=== PATIENT | male | born 1980 | race Caucasian/White ===

== ENCOUNTER 2019-01-15 12:49 | Inpatient (IN) | payer MEDICAID, SELFPAY ==
[2019-01-15 13:11] VITALS: BMI 22.5; BMI 49.7
[2019-01-15 13:13] VITALS: BP 139/93; PULSE 91; RESP 18; TEMP 36.8; O2SAT 99
[2019-01-15 14:00] VITALS: BP 139/93; PULSE 91; RESP 18; TEMP 36.8; O2SAT 99
--- NOTE | 2019-01-15 14:06 | PCM.HP.STD ---
Problem List (1) Heroin abuse Status: Acute (2) Alcohol abuse Status: Acute (3) Cocaine abuse Status: Acute History of Present Illness Date of Admission: 01/15/19 Chief Complaint: Polysubstance abuse withdrawal The patient is a 38 year old M with a history of polysubstance abuse and multiple episodes of withdrawal who presents once again with heroin and alcohol withdrawal. He states that his last use with the 16th of a gram of heroin yesterday evening and his last drink was 6 beers yesterday afternoon as well. He states that he used cocaine 2-3 days ago. He presented for [facility] withdrawal and on their evaluation felt that his CIWA was 37 and his CINA was 23. He states that he was also recently about a week and a half ago tested for hepatitis C and HIV which were negative. Also he has a history of anxiety and depression and was on Wellbutrin and Zoloft however he has not taken those medications in over a month. Past Medical History Allergies No Known Allergies Allergy (Verified 01/15/19 13:28) Surgical History: no surgical history Smoking Status: Current every day smoker Tobacco Use: Cigarettes Alcohol: Heavy Drugs: Cocaine, Heroin - *Family History Maternal History Items: No pertinent history Paternal History Items: No pertinent history Review of Systems Constitutional: Denies: Chills, Fever, Weight Change HEENT: Denies: Head Aches, Sinus Congestion, Sinus Drainage Cardiovascular: Denies: Chest Pain, Palpitations Respiratory: Denies: Cough, Shortness of breath at rest, Sputum production Gastrointestinal: Reports: Abdominal Pain, Nausea. Denies: Vomiting Genitourinary: Denies: Dysuria Musculoskeletal: Denies: Joint Pain, Joint Tenderness Skin: Denies: Rash, Wounds Neurological: Denies: Numbness, Tingling, Focal weakness Psychiatric: Reports: Anxiety. Denies: Depression Hematologic/ Lymphatic: Denies: Easy Bruising, Easy Bleeding VTE Information - Inpt Only VTE Present on Admission: No Patient Problems: Active and Suspected Problems Heroin abuse (Acute) Alcohol abuse (Acute) Cocaine abuse (Acute) - Physical Exam General: Alert, Oriented x3, Cooperative, - - Restless HEENT: Atraumatic, PERRLA, EOMI, Normocephalic Oral: Moist Mucosa Neck: Supple, No JVD Lungs: Clear to auscultation, Normal air movement, No rhonchi, No wheeze, No rales Cardiovascular: Regular rate, Regular Rhythm, Normal S1, Normal S2, No murmurs Abdomen: Soft, Non Tender, Non-Distended, No Hepato-splenomegaly Extremities: No edema, Capillary Refill Less than 3 Seconds Skin: Ulcer/ Wound - Multiple track galeano all over his body in different stages of healing, there is a new neck wound on his left that appears to be healing slowly, it is dry and about a centimeter in diameter. Neurological: Neuro grossly intact, Sensory exam intact to light touch and pain Psych/Mental Status: Anxious, Restless Vital Signs Temp Pulse Resp BP Pulse Ox 98.3 F 91 18 139/93 H 99 01/15/19 13:13 01/15/19 13:13 01/15/19 13:13 01/15/19 13:13 01/15/19 13:13 Oxygen Delivery Method Room Air Weight: 148 lb 4 oz Body Mass Index (BMI) 22.5 Assessment/Plan All Active Problems Heroin abuse (Acute) Alcohol abuse (Acute) Cocaine abuse (Acute) 1. Heroin/alcohol withdrawal/cocaine use -We will continue with the [facility] protocol for withdrawal -Librium taper as well as Suboxone taper -Ativan 2 mg IV every 2 as needed for alcohol withdrawal -We will monitor multiple track galeano for signs of infection -States that he was recently tested for HIV and HCV which was negative 2. Anxiety/depression -Had been on Zoloft and Wellbutrin -Taken any medications in over a month, may need medications on discharge if stable 3. Tobacco abuse -Counseled cessation -Provide nicotine patch DVT: Ambulation Code Visit Inpatient E&M: 47172 Init Hosp L2
[2019-01-15] MEDS: chlordiazePOXIDE 25 MG Capsule PO ×2 (14:11→19:54)
[2019-01-15] MEDS: cloNIDine HCl 0.1 MG Tablet PO ×3 (14:11→21:48)
[2019-01-15] MEDS: hydrOXYzine PAM 25 MG Capsule 50 MG PO (14:11)
[2019-01-15] MEDS: Methocarbamol 750 MG Tablet PO ×2 (14:11→21:48)
[2019-01-15] MEDS: Buprenorphine HCl 2 MG TAB.SUBL SL ×2 (14:11→21:41)
[2019-01-15] MEDS: Pramipexole Di-HCl 0.25 MG Tablet PO (14:11)
[2019-01-15] MEDS: LORazepam 2 MG/ML Syringe IV ×3 (14:15→19:58)
--- NOTE | 2019-01-15 16:14 | NURSING ---
PT STATES DOES NOT RECEIVE VACCINES
[2019-01-15] MEDS: Acetaminophen 325 MG Tablet 650 MG PO (17:24)
[2019-01-15] MEDS: Ondansetron 4 MG/2 ML Vial IV (17:24)
[2019-01-15] MEDS: Dicyclomine 10 MG Capsule 20 MG PO (17:25)
[2019-01-15 17:26] LABS: Bedside Glucose 142 mg/dL (70-110)
[2019-01-15 18:00] VITALS: BP 115/61; PULSE 98; RESP 18; TEMP 36.9; O2SAT 97
[2019-01-15 18:24] VITALS: BP 115/61; PULSE 98; RESP 18; TEMP 36.9; O2SAT 97
[2019-01-15 19:49] VITALS: BP 114/68; PULSE 92; RESP 16; TEMP 36.9; O2SAT 97
[2019-01-15 23:10] LABS: Bedside Glucose 104 mg/dL (70-110)
[2019-01-16] MEDS: chlordiazePOXIDE 25 MG Capsule PO ×4 (01:54→23:09)
[2019-01-16 01:57] VITALS: BP 108/69; PULSE 78; RESP 16; TEMP 36.7; O2SAT 98
[2019-01-16] MEDS: LORazepam 2 MG/ML Syringe IV ×2 (02:04→06:52)
[2019-01-16] MEDS: Pramipexole Di-HCl 0.25 MG Tablet PO (02:11)
[2019-01-16] MEDS: Acetaminophen 325 MG Tablet 650 MG PO ×3 (02:12→21:37)
[2019-01-16] MEDS: Dicyclomine 10 MG Capsule 20 MG PO ×3 (02:12→21:38)
[2019-01-16] MEDS: cloNIDine HCl 0.1 MG Tablet PO ×5 (02:12→21:35)
[2019-01-16] MEDS: hydrOXYzine PAM 25 MG Capsule 50 MG PO ×3 (02:12→21:35)
[2019-01-16] MEDS: Buprenorphine HCl 2 MG TAB.SUBL SL ×3 (06:44→21:35)
[2019-01-16] MEDS: Methocarbamol 750 MG Tablet PO ×3 (06:52→21:35)
--- NOTE | 2019-01-16 08:56 | PCM.PN.HOSP ---
Patient Problems: Active and Suspected Problems Heroin abuse (Acute) Alcohol abuse (Acute) Cocaine abuse (Acute) Subjective: Doing well, no issues overnight Vitals/I&O's: Vital Signs Temp Pulse Resp BP Pulse Ox 98.1 F 78 16 108/69 98 01/16/19 01:57 01/16/19 01:57 01/16/19 01:57 01/16/19 01:57 01/16/19 01:57 Oxygen Delivery Method Room Air Weight: 148 lb 3.997 oz Body Mass Index (BMI) 22.5 Intake and Output for Last 24 Hours 01/14/19 01/15/19 01/16/19 23:59 23:59 23:59 Intake Total 440 / 440 500 / 500 Balance 440 / 440 500 / 500 General: Alert, Oriented x3, Cooperative, - - Restless HEENT: Atraumatic, PERRLA, EOMI, Normocephalic Oral: Moist Mucosa Neck: Supple, No JVD Lungs: Clear to auscultation, Normal air movement, No rhonchi, No wheeze, No rales Cardiovascular: Regular rate, Regular Rhythm, Normal S1, Normal S2, No murmurs Abdomen: Soft, Non Tender, Non-Distended, No Hepato-splenomegaly Extremities: No edema, Capillary Refill Less than 3 Seconds Skin: Ulcer/ Wound - Multiple track galeano all over his body in different stages of healing, there is a new neck wound on his left that appears to be healing slowly, it is dry and about a centimeter in diameter. Neurological: Neuro grossly intact, Sensory exam intact to light touch and pain Psych/Mental Status: Anxious, Restless Laboratory Results 01/15/19 17:17: POC Glucose 142 H 01/15/19 23:08: POC Glucose 104 Current Medications Acetaminophen (Tylenol) 650 mg PO Q6H PRN PRN PRN Reason: Mild Pain (1-3)/Temp > 100.7 F Last Admin: 01/16/19 02:12 Dose: 650 mg Buprenorphine HCl (Buprenorphine Hcl) 4 mg SL Q8H NAY; Taper Stop: 01/18/19 17:44 Last Admin: 01/16/19 06:44 Dose: 4 mg Chlordiazepoxide (Librium) 50 mg PO Q8H NAY; Taper Stop: 01/18/19 15:44 Last Admin: 01/16/19 06:44 Dose: 50 mg Clonidine (Catapres) 0.1 mg PO Q2H PRN PRN PRN Reason: Hot/Cold Sweats or Anxiety Last Admin: 01/16/19 06:52 Dose: 0.1 mg Dicyclomine HCl (Bentyl) 20 mg PO Q6H PRN PRN PRN Reason: abdominal discomfort Last Admin: 01/16/19 02:12 Dose: 20 mg [facility]olic Acid ([facility]) [facility] Stop: 01/18/19 08:01 Hydroxyzine Pamoate (Vistaril Pamoate Capsule) 50 mg PO Q6H PRN PRN PRN Reason: Mild Anxiety (score 1/3) Last Admin: 01/16/19 02:12 Dose: 50 mg Lorazepam (Ativan) 2 mg IV X1 PRN PRN Reason: Seizure Last Admin: 01/15/19 14:15 Dose: 2 mg Lorazepam (Ativan) 2 mg PO Q2H PRN PRN PRN Reason: Alcohol Withdrawal Methocarbamol (Methocarbamol) 750 mg PO Q6H PRN PRN PRN Reason: Muscle Aches Last Admin: 01/16/19 06:52 Dose: 750 mg Multivitamins (Multivitamin) 1 tablet [facility] Nicotine (Nicoderm Cq (Pbkc)) 14 mg TRANSDERM. DAILY [facility] Last Admin: 01/15/19 17:19 Dose: 14 mg Nutritional Formula (Lactose Free) (Ensure Enlive) 120 ml PO 4X/DAY [facility] Last Admin: 01/15/19 21:41 Dose: 120 ml Ondansetron HCl (Zofran) 4 mg IV Q8H PRN PRN PRN Reason: NAUSEA/VOMITING Last Admin: 01/15/19 17:24 Dose: 4 mg Pramipexole Dihydrochloride (Mirapex) 0.25 mg PO Q12H PRN PRN PRN Reason: Restless Legs Last Admin: 01/16/19 02:11 Dose: 0.25 mg Sodium Chloride () 5 - 15 ml IV UD PRN PRN Reason: SALINE FLUSH Thiamine HCl (Vitamin B1) [facility] Stop: 01/18/19 08:01 Medical Necessity - Tobacco Use Smoking Status: Current every day smoker Tobacco Use: Cigarettes Assessment/Plan All Active Problems Heroin abuse (Acute) Alcohol abuse (Acute) Cocaine abuse (Acute) 1. Heroin/alcohol withdrawal/cocaine use -We will continue with the [facility] protocol for withdrawal -Librium taper as well as Suboxone taper -Ativan 2 mg p.o. every 2 as needed for alcohol withdrawal -We will monitor multiple track galeano for signs of infection -States that he was recently tested for HIV and HCV which was negative 2. Anxiety/depression -Had been on Zoloft and Wellbutrin -Has not taken any medications in over a month, may need medications on discharge if stable 3. Tobacco abuse -Counseled cessation -Provide nicotine patch DVT: Ambulation Code Visit Inpatient E&M: 51450 Subs Hosp L2
[2019-01-16 10:00] VITALS: BP 127/54; PULSE 89; RESP 18; TEMP 36.8
[2019-01-16] MEDS: Thiamine Hydrochloride 100 MG Tablet PO (10:32)
[2019-01-16] MEDS: Folic Acid 1 MG Tablet PO (10:32)
[2019-01-16] MEDS: Multivitamins,Therapeutic Tablet 1 TABLET PO (10:32)
[2019-01-16] MEDS: LORazepam 1 MG Tablet 2 MG PO ×5 (10:38→23:26)
--- NOTE | 2019-01-16 12:23 | NEWVISION ---
Patient has discharge plan with [facility] same day -post D/c with agency to picker patient. Contact at the [facility]: Aris [phone]. {Patient to call on Saturday to arrange for the transportation that they are providing for Saturday.
[2019-01-16 14:00] VITALS: BP 111/65; PULSE 78; RESP 14; TEMP 36.8
[2019-01-16 21:43] VITALS: BP 114/73; PULSE 64; RESP 18; TEMP 36.8
[2019-01-17] VITALS (10 sets, daily range): BP systolic 120–136; BP diastolic 56–80; PULSE 80–88; RESP 16–18; TEMP 36.6–37; O2SAT 98–100
[2019-01-17] MEDS: Pramipexole Di-HCl 0.25 MG Tablet PO (00:36)
[2019-01-17] MEDS: LORazepam 1 MG Tablet 2 MG PO ×6 (00:37→19:14)
[2019-01-17] MEDS: cloNIDine HCl 0.1 MG Tablet PO ×4 (00:38→18:00)
--- NOTE | 2019-01-17 00:56 | NURSING ---
pt anxious,CIWA score 22, withdrawal score 7. prn Ativan given an hr after first dose per order.
[2019-01-17] MEDS: Methocarbamol 750 MG Tablet PO ×2 (05:37→18:00)
[2019-01-17] MEDS: Acetaminophen 325 MG Tablet 650 MG PO (05:38)
[2019-01-17] MEDS: Buprenorphine HCl 2 MG TAB.SUBL SL ×2 (05:38→17:46)
[2019-01-17] MEDS: chlordiazePOXIDE 25 MG Capsule PO ×2 (07:26→16:03)
[2019-01-17] MEDS: Folic Acid 1 MG Tablet PO (08:29)
[2019-01-17] MEDS: Multivitamins,Therapeutic Tablet 1 TABLET PO (08:29)
[2019-01-17] MEDS: Thiamine Hydrochloride 100 MG Tablet PO (08:29)
[2019-01-17] MEDS: Ondansetron ODT 4 MG Tablet PO (08:55)
--- NOTE | 2019-01-17 08:59 | PCM.PN.HOSP ---
Patient Problems: Active and Suspected Problems Heroin abuse (Acute) Alcohol abuse (Acute) Cocaine abuse (Acute) Subjective: Seems more calm today and is sitting up in bed watching television and eating breakfast. Feeling better than when he came in no acute events overnight Vitals/I&O's: Vital Signs Temp Pulse Resp BP Pulse Ox 98.3 F 88 18 131/77 H 99 01/17/19 08:32 01/17/19 08:32 01/17/19 08:32 01/17/19 08:32 01/17/19 08:32 Oxygen Delivery Method Room Air Weight: 148 lb 3.997 oz Body Mass Index (BMI) 22.5 Intake and Output for Last 24 Hours 01/15/19 01/16/19 01/17/19 23:59 23:59 23:59 Intake Total 440 / 440 1600 / 1600 300 / 300 Balance 440 / 440 1600 / 1600 300 / 300 General: Alert, Oriented x3, Cooperative, HEENT: Atraumatic, PERRLA, EOMI, Normocephalic Oral: Moist Mucosa Neck: Supple, No JVD Lungs: Clear to auscultation, Normal air movement, No rhonchi, No wheeze, No rales Cardiovascular: Regular rate, Regular Rhythm, Normal S1, Normal S2, No murmurs Abdomen: Soft, Non Tender, Non-Distended, No Hepato-splenomegaly Extremities: No edema, Capillary Refill Less than 3 Seconds Skin: Ulcer/ Wound - Multiple track galeano all over his body in different stages of healing, there is a new neck wound on his left that appears to be healing slowly, it is dry and about a centimeter in diameter. Neurological: Neuro grossly intact, Sensory exam intact to light touch and pain Psych/Mental Status: Anxious, Restless Current Medications Acetaminophen (Tylenol) 650 mg PO Q6H PRN PRN PRN Reason: Mild Pain (1-3)/Temp > 100.7 F Last Admin: 01/17/19 05:38 Dose: 650 mg Buprenorphine HCl (Buprenorphine Hcl) 2 mg SL Q12H NAY; Taper Stop: 01/18/19 17:44 Last Admin: 01/17/19 05:38 Dose: 2 mg Chlordiazepoxide (Librium) 50 mg PO Q8H NAY; Taper Stop: 01/18/19 15:44 Last Admin: 01/17/19 07:26 Dose: 50 mg Clonidine (Catapres) 0.1 mg PO Q2H PRN PRN PRN Reason: Hot/Cold Sweats or Anxiety Last Admin: 01/17/19 05:37 Dose: 0.1 mg Dicyclomine HCl (Bentyl) 20 mg PO Q6H PRN PRN PRN Reason: abdominal discomfort Last Admin: 01/16/19 21:38 Dose: 20 mg Folic Acid ([facility] Acid) [facility] Stop: 01/18/19 08:01 Last Admin: 01/17/19 08:29 Dose: 1 mg Hydroxyzine Pamoate (Vistaril Pamoate Capsule) 50 mg PO Q6H PRN PRN PRN Reason: Mild Anxiety (score 1/3) Last Admin: 01/16/19 21:35 Dose: 50 mg Lorazepam (Ativan) 2 mg IV X1 PRN PRN Reason: Seizure Last Admin: 01/15/19 14:15 Dose: 2 mg Lorazepam (Ativan) 2 mg PO Q2H PRN PRN PRN Reason: Alcohol Withdrawal Last Admin: 01/17/19 08:54 Dose: 2 mg Methocarbamol (Methocarbamol) 750 mg PO Q6H PRN PRN PRN Reason: Muscle Aches Last Admin: 01/17/19 05:37 Dose: 750 mg Multivitamins (Multivitamin) [facility] Last Admin: 01/17/19 08:29 Dose: 1 tablet Nicotine (Nicoderm Cq (Pbkc)) 21 mg TRANSDERM. DAILY [facility] Last Admin: 01/16/19 21:42 Dose: 21 mg Nutritional Formula (Lactose Free) (Ensure Enlive) 120 ml PO 4X/DAY [facility] Last Admin: 01/16/19 21:35 Dose: 120 ml Ondansetron HCl (Zofran Odt) 4 mg PO Q8H PRN PRN PRN Reason: NAUSEA Last Admin: 01/17/19 08:55 Dose: 4 mg Pramipexole Dihydrochloride (Mirapex) 0.25 mg PO Q12H PRN PRN PRN Reason: Restless Legs Last Admin: 01/17/19 00:36 Dose: 0.25 mg Sodium Chloride () 5 - 15 ml IV UD PRN PRN Reason: SALINE FLUSH Thiamine HCl (Vitamin B1) [facility] Stop: 01/18/19 08:01 Last Admin: 01/17/19 08:29 Dose: 100 mg Medical Necessity - Tobacco Use Smoking Status: Current every day smoker Tobacco Use: Cigarettes Assessment/Plan All Active Problems Heroin abuse (Acute) Alcohol abuse (Acute) Cocaine abuse (Acute) 1. Heroin/alcohol withdrawal/cocaine use -We will continue with the [facility] protocol for withdrawal -Librium taper as well as Suboxone taper -Ativan 2 mg p.o. every 2 as needed for alcohol withdrawal -We will monitor multiple track galeano for signs of infection -States that he was recently tested for HIV and HCV which was negative 2. Anxiety/depression -Had been on Zoloft and Wellbutrin -Has not taken any medications in over a month, may need medications on discharge if stable 3. Tobacco abuse -Counseled cessation -Provide nicotine patch Dispo: [facility] tomorrow to further inpatient rehab DVT: Ambulation Code Visit Inpatient E&M: 02499 Subs Hosp L2
--- NOTE | 2019-01-17 09:07 | CASEMGMT ---
Physician asked about pt's discharge plan as pt is uncertain what it is and how he will get there. SW reviewed the chart, Vonnie from [facility] in her note states pt is going to [facility] and pt is to call to set up transport, they will come brick picker pt tomorrow. ARACELIS spoke w/pt, he actually found the information from Vonnie at the bedside and called [facility] already, but was not sure what time he should tell them to pick him up. ARACELIS spoke w/physician, pt will be ready for discharge after 5:45am. ARACELIS let RN know pt can be picked up tomorrow morning after his last dose of meds at 5:45am. SHRAVAN Rose, PROGRAM MANAGEMENT PROFESSIONAL
--- NOTE | 2019-01-17 09:10 | PN_ITS ---
Patient Problems: Active and Suspected Problems Heroin abuse (Acute) Alcohol abuse (Acute) Cocaine abuse (Acute) Subjective: Seems more calm today and is sitting up in bed watching television and eating breakfast. Feeling better than when he came in no acute events overnight Vitals/I&O's: Vital Signs Temp Pulse Resp BP Pulse Ox 98.3 F 88 18 131/77 H 99 01/17/19 08:32 01/17/19 08:32 01/17/19 08:32 01/17/19 08:32 01/17/19 08:32 Oxygen Delivery Method Room Air Weight: 148 lb 3.997 oz Body Mass Index (BMI) 22.5 Intake and Output for Last 24 Hours 01/15/19 01/16/19 01/17/19 23:59 23:59 23:59 Intake Total 440 / 440 1600 / 1600 300 / 300 Balance 440 / 440 1600 / 1600 300 / 300 General: Alert, Oriented x3, Cooperative, HEENT: Atraumatic, PERRLA, EOMI, Normocephalic Oral: Moist Mucosa Neck: Supple, No JVD Lungs: Clear to auscultation, Normal air movement, No rhonchi, No wheeze, No rales Cardiovascular: Regular rate, Regular Rhythm, Normal S1, Normal S2, No murmurs Abdomen: Soft, Non Tender, Non-Distended, No Hepato-splenomegaly Extremities: No edema, Capillary Refill Less than 3 Seconds Skin: Ulcer/ Wound - Multiple track galeano all over his body in different stages of healing, there is a new neck wound on his left that appears to be healing slowly, it is dry and about a centimeter in diameter. Neurological: Neuro grossly intact, Sensory exam intact to light touch and pain Psych/Mental Status: Anxious, Restless Current Medications Acetaminophen (Tylenol) 650 mg PO Q6H PRN PRN PRN Reason: Mild Pain (1-3)/Temp > 100.7 F Last Admin: 01/17/19 05:38 Dose: 650 mg Buprenorphine HCl (Buprenorphine Hcl) 2 mg SL Q12H NAY; Taper Stop: 01/18/19 17:44 Last Admin: 01/17/19 05:38 Dose: 2 mg Chlordiazepoxide (Librium) 50 mg PO Q8H NAY; Taper Stop: 01/18/19 15:44 Last Admin: 01/17/19 07:26 Dose: 50 mg Clonidine (Catapres) 0.1 mg PO Q2H PRN PRN PRN Reason: Hot/Cold Sweats or Anxiety Last Admin: 01/17/19 05:37 Dose: 0.1 mg Dicyclomine HCl (Bentyl) 20 mg PO Q6H PRN PRN PRN Reason: abdominal discomfort Last Admin: 01/16/19 21:38 Dose: 20 mg Folic Acid (Folic Acid) [facility] Stop: 01/18/19 08:01 Last Admin: 01/17/19 08:29 Dose: 1 mg Hydroxyzine Pamoate (Vistaril Pamoate Capsule) 50 mg PO Q6H PRN PRN PRN Reason: Mild Anxiety (score 1/3) Last Admin: 01/16/19 21:35 Dose: 50 mg Lorazepam (Ativan) 2 mg IV X1 PRN PRN Reason: Seizure Last Admin: 01/15/19 14:15 Dose: 2 mg Lorazepam (Ativan) 2 mg PO Q2H PRN PRN PRN Reason: Alcohol Withdrawal Last Admin: 01/17/19 08:54 Dose: 2 mg Methocarbamol (Methocarbamol) 750 mg PO Q6H PRN PRN PRN Reason: Muscle Aches Last Admin: 01/17/19 05:37 Dose: 750 mg Multivitamins (Multivitamin) [facility] tablet [facility] Last Admin: 01/17/19 08:29 Dose: 1 tablet Nicotine (Nicoderm Cq (Pbkc)) 21 mg TRANSDERM. DAILY [facility] Last Admin: 01/16/19 21:42 Dose: 21 mg Nutritional Formula (Lactose Free) (Ensure Enlive) 120 ml PO 4X/DAY [facility] Last Admin: 01/16/19 21:35 Dose: 120 ml Ondansetron HCl (Zofran Odt) 4 mg PO Q8H PRN PRN PRN Reason: NAUSEA Last Admin: 01/17/19 08:55 Dose: 4 mg Pramipexole Dihydrochloride (Mirapex) 0.25 mg PO Q12H PRN PRN PRN Reason: Restless Legs Last Admin: 01/17/19 00:36 Dose: 0.25 mg Sodium Chloride () 5 - 15 ml IV UD PRN PRN Reason: SALINE FLUSH Thiamine HCl (Vitamin B1) 100 mg [facility] Stop: 01/18/19 08:01 Last Admin: 01/17/19 08:29 Dose: 100 mg Medical Necessity - Tobacco Use Smoking Status: Current every day smoker Tobacco Use: Cigarettes Assessment/Plan All Active Problems Heroin abuse (Acute) Alcohol abuse (Acute) Cocaine abuse (Acute) 1. Heroin/alcohol withdrawal/cocaine use -We will continue with the [facility] protocol for withdrawal -Librium taper as well as Suboxone taper -Ativan 2 mg p.o. every 2 as needed for alcohol withdrawal -We will monitor multiple track galeano for signs of infection -States that he was recently tested for HIV and HCV which was negative 2. Anxiety/depression -Had been on Zoloft and Wellbutrin -Has not taken any medications in over a month, may need medications on discharge if stable 3. Tobacco abuse -Counseled cessation -Provide nicotine patch Dispo: [facility] tomorrow to further inpatient rehab DVT: Ambulation Code Visit Inpatient E&M: 83372 Subs Hosp L2
[2019-01-17] MEDS: hydrOXYzine PAM 25 MG Capsule 50 MG PO ×2 (10:43→18:00)
--- NOTE | 2019-01-17 11:04 | NURSING ---
rates anxiety 04/22, Vistaril given and he requested more snacks which were given also.
[2019-01-17] MEDS: Dicyclomine 10 MG Capsule 20 MG PO (12:45)
[2019-01-18 03:31] VITALS: BP 131/89; PULSE 81; RESP 16; TEMP 36.4; O2SAT 96
[2019-01-18 03:33] VITALS: BP 131/89; PULSE 81; RESP 16; TEMP 36.4
[2019-01-18] MEDS: chlordiazePOXIDE 25 MG Capsule PO (03:33)
[2019-01-18] MEDS: LORazepam 1 MG Tablet 2 MG PO (03:47)
[2019-01-18] MEDS: Buprenorphine HCl 2 MG TAB.SUBL SL (05:57)
--- NOTE | 2019-01-18 07:41 | DCINST_ITS ---
- Discharge Diagnoses Current Active Problems: Current Active and Chronic Problems Heroin abuse (Acute) Alcohol abuse (Acute) Cocaine abuse (Acute) You will use the following diet at home:: Regular Your food should be the consistency of: Regular Your liquids should be the consistency of: Regular/Thin Discharge Activity: Return to Normal Activity Call your doctor if you observe: Fever of 101 or Higher, Shortness of breath, Dizziness, Fainting spells, Swelling in the ankles, Chest pain, Increased palpitations (irregular heartbeat) Allergies/Adverse Reactions: Allergies No Known Allergies Allergy (Verified 01/15/19 13:28) Primary Care Physician: Care Physician,No Primary [Primary Care Provider] - Please follow up with your Primary Care Physician in: 3-5 days Test Results: Test results from this visit will be discussed in further detail at your follow- up appointment, if applicable.
--- NOTE | 2019-01-18 07:47 | DS.PCM_ITS ---
Discharge Date and Diagnosis - Problem List Patient Problems: Active and Suspected Problems Heroin abuse (Acute) Alcohol abuse (Acute) Cocaine abuse (Acute) Date of Admission: 01/15/19 Date of Discharge: 01/18/19 - Primary Discharge Diagnosis Active and Suspected Problems Heroin abuse (Acute) Alcohol abuse (Acute) Cocaine abuse (Acute) Hospital Course and Treatment Imaging Results: None None Operations: None Procedures: None Summary of Care Provided: HPI: The patient is a 38 year old M with a history of polysubstance abuse and multiple episodes of withdrawal who presents once again with heroin and alcohol withdrawal. He states that his last use with the 16th of a gram of heroin yesterday evening and his last drink was 6 beers yesterday afternoon as well. He states that he used cocaine 2-3 days ago. He presented for [facility] withdrawal and on their evaluation felt that his CIWA was 37 and his CINA was 23. He states that he was also recently about a week and a half ago tested for hepatitis C and HIV which were negative. Also he has a history of anxiety and depression and was on Wellbutrin and Zoloft however he has not taken those medications in over a month. Hospital Course: 1. Heroin/alcohol withdrawal/cocaine use/anxiety/depression/tobacco abuse- 38-year-old male who presented after using 16th of a gram of heroin as well as drinking 6 beers and using cocaine 2-3 days ago presents with a CINA of 23. He was started on the [facility] protocol for alcohol withdrawal as well and has heroin withdrawal. He did well and is planning on being discharged to a inpatient rehab unit today. He does state that he has a history of anxiety and depression and has not been taking any of his medications for about a month ago, if he is going to an inpatient facility I will allow the mental health providers there to address this issue in a more controlled environment. He received a nicotine patch and was counseled on since cessation during throughout his stay. Patient Problems: Active and Suspected Problems Heroin abuse (Acute) Alcohol abuse (Acute) Cocaine abuse (Acute) Objective: General: Alert, Oriented x3, Cooperative, HEENT: Atraumatic, PERRLA, EOMI, Normocephalic Oral: Moist Mucosa Neck: Supple, No JVD Lungs: Clear to auscultation, Normal air movement, No rhonchi, No wheeze, No rales Cardiovascular: Regular rate, Regular Rhythm, Normal S1, Normal S2, No murmurs Abdomen: Soft, Non Tender, Non-Distended, No Hepato-splenomegaly Extremities: No edema, Capillary Refill Less than 3 Seconds Skin: Ulcer/ Wound - Multiple track galeano all over his body in different stages of healing, there is a new neck wound on his left that appears to be healing slowly, it is dry and about a centimeter in diameter. Neurological: Neuro grossly intact, Sensory exam intact to light touch and pain Psych/Mental Status: Anxious, Restless - Physical Exam Vital Signs Temp Pulse Resp BP Pulse Ox 97.5 F L 81 16 131/89 H 96 01/18/19 03:33 01/18/19 03:33 01/18/19 03:33 01/18/19 03:33 01/18/19 03:31 Oxygen Delivery Method Room Air Weight: 148 lb 3.997 oz Body Mass Index (BMI) 22.5 Intake and Output for Last 24 Hours 01/16/19 01/17/19 01/18/19 23:59 23:59 23:59 Intake Total 1600 / 1600 300 / 300 600 / 600 Balance 1600 / 1600 300 / 300 600 / 600 Discharge Activity: Return to Normal Activity Call your doctor if you observe: Fever of 101 or Higher, Shortness of breath, Dizziness, Fainting spells, Swelling in the ankles, Chest pain, Increased palpitations (irregular heartbeat) Primary Care Physician: Care Physician,No Primary [Primary Care Provider] - Please follow up with your Primary Care Physician in: 3-5 days Disposition: Inpatient drug rehab Minutes spent on discharge:: 35 Patient Condition:: Good Medical Necessity - Tobacco Use Smoking Status: Current every day smoker Tobacco Use: Cigarettes Meaningful Use Info Meaningful Use Diagnoses (Choose all that apply): None applicable Code Visit Inpatient E&M: 59358 Disch Hosp
[2019-01-18 08:09] VITALS: BP 130/88; PULSE 91; RESP 18; TEMP 36.6; O2SAT 100
[2019-01-18] MEDS: Folic Acid 1 MG Tablet PO (08:11)
[2019-01-18] MEDS: Multivitamins,Therapeutic Tablet 1 TABLET PO (08:11)
[2019-01-18] MEDS: Thiamine Hydrochloride 100 MG Tablet PO (08:12)
[2019-01-18 08:14] VITALS: BP 130/80; BP 130/88; PULSE 80; PULSE 91; RESP 18; TEMP 36.6; O2SAT 98
[2019-01-18] MEDS: hydrOXYzine PAM 25 MG Capsule 50 MG PO (08:18)
--- NOTE | 2019-01-18 09:43 | NURSING ---
message left on answering machine to call nurse regarding what time transport is expected to arrive at [facility]. Requested that they call [phone].
== END 2019-01-18 10:15 | disposition home or self-care (01) | DRG 773 ==
LOC: MS2 01-16 06:43 → MS3 01-17 14:12
PROVIDERS: Admitting Provider Family Medicine; Referring Provider Family Medicine; Visit Provider Family Medicine
DX: F11.23 Opioid dependence with withdrawal (principal); F10.239 Alcohol dependence with withdrawal, unspecified; F17.210 Nicotine dependence, cigarettes, uncomplicated; F14.10 Cocaine abuse, uncomplicated
CPT/HCPCS: 82962; 97802; A4216; J2405